=== PATIENT | male | born 1975 | race African-American/Black ===

== ENCOUNTER 2024-06-09 15:42 | Emergency (ER) | payer OTHER, SELFPAY ==
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
[2024-06-09 15:57] VITALS: BP 161/109; BP 210/100; PULSE 139; PULSE 149; RESP 18; TEMP 36.6; O2SAT 96; O2SAT 98; BMI 30.1
[2024-06-09 16:31] VITALS: BP 137/100; PULSE 114; RESP 16; TEMP 36.6; O2SAT 97
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
--- NOTE | 2024-06-09 16:55 | ECG_ITS ---
Test Reason : heart screening Blood Pressure : */* mmHG Vent. Rate : 88 BPM Atrial Rate : 88 BPM P-R Int : 170 ms QRS Dur : 88 ms QT Int : 334 ms P-R-T Axes : 27 -16 22 degrees QTcB Int : 404 ms Normal sinus rhythm Normal ECG No previous ECGs available Referred By: Tiffanie Wilkins Electronically Signed By: Alirio Hurt
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
[2024-06-09] MEDS: Acetaminophen 325 MG TABLET 975 MG PO (17:04)
[2024-06-09] MEDS: Ketorolac Tromethamine 30 MG/ML VIAL IM (17:05)
--- NOTE | 2024-06-09 17:22 | PC.NURSE ---
Patient pain still rated 6/10, non radiating. Administered medication as ordered by provider, effectiveness pending
--- NOTE | 2024-06-09 17:24 | PC.NURSE ---
EKG obtain, results given to provider
[2024-06-09 18:22] VITALS: BP 137/100; PULSE 114; RESP 16; TEMP 36.6; O2SAT 97
== END 2024-06-09 18:22 | disposition home or self-care (01) ==
PROVIDERS: Emergency Provider Emergency Medicine; PCP Student in an Organized Health Care Education/Training Program
DX: R07.81 Pleurodynia (principal); R00.0 Tachycardia, unspecified; T14.90XA Injury, unspecified, initial encounter; V43.52XA Car driver injured in collision with other type car in traffic accident, initial encounter; Y93.9 Activity, unspecified; Y92.9 Unspecified place or not applicable; Y99.9 Unspecified external cause status; I10 Essential (primary) hypertension
CPT/HCPCS: 71046; 93005; 96372; 99284; 99285; J1885

== ENCOUNTER → 2024-06-09 16:34 | Outpatient (BNV) | payer OTHER, SELFPAY | PROVIDERS: Emergency Provider Emergency Medicine; PCP Student in an Organized Health Care Education/Training Program; Visit Provider Radiology Diagnostic Radiology | DX: R07.81 Pleurodynia (principal); V89.2XXA Person injured in unspecified motor-vehicle accident, traffic, initial encounter | CPT/HCPCS: 71046 ==

== ENCOUNTER → 2024-06-09 16:55 | Outpatient (BNV) | payer OTHER, SELFPAY | PROVIDERS: Emergency Provider Emergency Medicine; PCP Student in an Organized Health Care Education/Training Program; Visit Provider Internal Medicine Cardiovascular Disease | DX: Z13.6 Encounter for screening for cardiovascular disorders (principal) | CPT/HCPCS: 93010 ==